=== PATIENT | female | born 1980 | race Hispanic/Latino ===

== ENCOUNTER 2023-09-28 10:33 | Outpatient (CLI) | payer OTHER | END 2023-09-28 10:34 | disposition home or self-care (01) | LOC: CSHMAMMO 10:33 | PROVIDERS: ATTEND Obstetrics & Gynecology | DX: Z12.31 Encounter for screening mammogram for malignant neoplasm of breast (principal); Z98.82 Breast implant status | CPT/HCPCS: 77063; 77067 ==

== ENCOUNTER 2023-12-21 05:43 | Day surgery (SDC) | payer OTHER ==
[2023-12-20 10:17] VITALS: BMI 28.3
[~2023-12-21 05:43] MED LIST: CEFAZOLIN 2 GM VIAL ONE; metroNIDAZOLE 500 MG (100 mL) BAG ONE
[2023-12-21] MEDS ORDERED: PROPOFOL 20 ML ONE (06:41)
[2023-12-21] MEDS ORDERED: Lidocaine 2% PF 5 ML VIAL ONE (06:41)
[2023-12-21] MEDS ORDERED: fentaNYL 50 mcg/mL 1 mL Vial ONE ×4 (06:44→08:30)
[2023-12-21] MEDS ORDERED: metroNIDAZOLE 500 MG (100 mL) BAG ONE (06:51)
[2023-12-21] MEDS ORDERED: CEFAZOLIN 2 GM VIAL ONE (06:51)
[2023-12-21] MEDS ORDERED: Midazolam HCl 2 mg/2 ml Vial ONE (06:57)
[2023-12-21 07:05] LABS: #Basophils 0.04 10x3/uL (0.0-0.2); #Monocytes 0.49 10x3/uL (0.0-1.1); #Neutrophils 4.89 10x3/uL (1.5-8.4); %Basophils 0.6 % (0.0-2.0); %Lymphocytes 24.6 % (18.0-47.0); %Monocytes 6.7 % (0.0-10.0); %Neutrophils 67.3 % (40.0-75.0); Hematocrit 39.1 % (34.9-44.5); Hemoglobin 12.9 g/dL (12.0-15.5); Mean Corpuscular Volume 81.8 fL (81.6-98.3); Mean Platelet Volume 11.7 fL (7.4-10.4); Platelet Count 322 10x3/uL (150-450); Red Blood Cell (RBC) Count 4.78 10x6/uL (3.90-5.03); White Blood Cell (WBC) Count 7.3 10x3/uL (3.5-10.5)
[2023-12-21 07:07] LABS: BHCG - Serum Negative (NEGATIVE); Pregs Control Background? CLEAR/WHITE (CLR/WHITE); Pregs Control Bar Appear? YES (CONTROL BAR)
[2023-12-21 07:13] LABS: Anion Gap 15 mmol/L (10-20); BUN (Urea Nitrogen) 13 mg/dL (7.0-18.7); Calc. Creatinine Clearance 111 mL/min (70-130); Carbon Dioxide 24 mmol/L (22-29); Chloride 105 mmol/L (98-107); Estimated GFR 106; Glucose 184 mg/dL (70-105); Potassium 3.4 mmol/L (3.5-5.1); Sodium 141 mmol/L (136-145)
[2023-12-21] MEDS ORDERED: Ketorolac Tromethamine 30 MG (1 mL) VIAL ONE (07:26)
[2023-12-21] MEDS ORDERED: Ondansetron PF 4 MG/2 ML Vial ONE ×2 (07:36→09:24)
[2023-12-21] MEDS ORDERED: Dexamethasone 4 mg/ml Vial ONE (07:36)
[2023-12-21] MEDS ORDERED: HYDROcodone/Acetaminophen 5/325 mg Tablet ONE (08:53)
== END 2023-12-21 09:45 | disposition home or self-care (01) ==
LOC: CSHSDC 05:43
PROVIDERS: ATTEND Obstetrics & Gynecology
PROC: 0UDB8ZZ Extraction of Endometrium, Via Natural or Artificial Opening Endoscopic (ICD-10-PCS; principal; 2023-12-21)
DX: N87.9 Dysplasia of cervix uteri, unspecified (principal); N88.8 Other specified noninflammatory disorders of cervix uteri; N76.0 Acute vaginitis; D64.9 Anemia, unspecified; B37.31 Acute candidiasis of vulva and vagina; E11.9 Type 2 diabetes mellitus without complications; D25.9 Leiomyoma of uterus, unspecified; G43.909 Migraine, unspecified, not intractable, without status migrainosus; E78.5 Hyperlipidemia, unspecified; Z79.899 Other long term (current) drug therapy
CPT/HCPCS: 36415; 80048; 84703; 85025; 88305; 93005; 93010; J1100; J1885; J2001; J2250; J2405; J2704; J3010